=== PATIENT | male | born 1985 | race Caucasian/White ===

== ENCOUNTER 2020-11-23 06:25 | Emergency (ER) | payer OTHER ==
[2020-11-23 07:54] LABS: BUN/CREATININE RATIO 13 (0-10)
[2020-11-23 07:59] LABS: HEMOGLOBIN 13.8 gm/dl (14.0-17.5); RED BLOOD COUNT 4.7 M/UL (4.20-5.50); WHITE BLOOD COUNT 8.4 K/UL (4.5-11.0)
== END 2020-11-23 11:11 | disposition home or self-care (01) ==
LOC: ER1 06:25
PROVIDERS: Emergency Medicine
DX: R07.9 Chest pain, unspecified (principal)
CPT/HCPCS: 36415; 71045; 80053; 82550; 82553; 83690; 83874; 84484; 85025; 93005; 99285